=== PATIENT | female | born 1980 | race Caucasian/White ===

== ENCOUNTER 2022-09-21 09:50 | Outpatient (CLI) | payer OTHER, SELFPAY ==
--- NOTE | ~2022-09-21 | US_ITS ---
EXAMINATION: US FNA w image guidance DATE: 09/21/2022 11:20 INDICATION: Mass in right thyroidectomy bed. TECHNIQUE: The procedure and its benefits and risks were discussed with the patient. Risks specifically discusse d included bleeding. The patient verbalized understanding of the risks and agreed to proceed. The nec k was prepped and draped in the usual sterile manner. 1% lidocaine was used for local anesthesia. A needle was advanced toward the mass in right thyroidectomy bed. I was not confident the mass could be biopsied safely, and I removed the needle. There were no immediate complications. FINDINGS: There is a subcentimeter hypoechoic mass in the right thyroidectomy bed abutting the right common car otid artery. IMPRESSION: 1. Subcentimeter hypoechoic mass in the right thyroidectomy bed abutting the right common carotid art noman. I was not confident the mass could be biopsied safely, and I aborted the procedure. Reviewed, dictated and finalized at location A. GER PHILOSOPHY IMPRESSION: 1. Subcentimeter hypoechoic mass in the right thyroidectomy bed abutting the ri ght common carotid artery. I was not confident the mass could be biopsied safel y, and I aborted the procedure.
--- NOTE | ~2022-09-21 | US_ITS ---
EXAMINATION: US thyroid DATE: 09/21/2022 11:13 INDICATION: Malignant neoplasm of thyroid gland. TECHNIQUE: Multiple ultrasound images of the thyroid were obtained. COMPARISON: Ultrasound 12/24/2013 FINDINGS: There are changes of thyroidectomy. In the right thyroidectomy bed, there is a 9 x 4 x 6 mm hypoechoi c mass. IMPRESSION: 1. 9 x 4 x 6 mm hypoechoic mass in the right thyroidectomy bed. This finding is indeterminate for rec urrent malignancy. Reviewed, dictated and finalized at location A. DENT CARE PROVIDER IMPRESSION: 1. 9 x 4 x 6 mm hypoechoic mass in the right thyroidectomy bed. This finding is indeterminate for recurrent malignancy.
== END 2022-09-21 09:51 | disposition home or self-care (01) ==
PROVIDERS: PCP Family Medicine; Visit Provider Internal Medicine Endocrinology, Diabetes & Metabolism
DX: E89.0 Postprocedural hypothyroidism (principal); C73 Malignant neoplasm of thyroid gland
CPT/HCPCS: 10005; 76536